=== PATIENT | female | born 1990 | race Caucasian/White ===

== ENCOUNTER 2018-09-18 16:27 | Emergency (ER) | payer OTHER ==
[2018-09-18 16:32] VITALS: BP 119/83; PULSE 97; RESP 18; TEMP 98.2; O2SAT 100
[2018-09-18] MEDS ORDERED: Acetaminophen 650mg/20.3ml solution UD PO STA (16:33)
[2018-09-18] MEDS ORDERED: Acetaminophen 650mg/20.3ml solution UD ONE (16:35)
--- NOTE | 2018-09-18 16:46 | C.PDOC ---
History Of Present Illness 27 y/o female presents to the ER complaining of right ankle pain s/p fall today. Patient states that she was walking down the stairs when she missed a step and she inverted her right ankle.Patient denies having head injury,LOC, headache,dizziness, CP,SOB, knee pain, weakness, and numbness. <Supa Sumner DO - Last Filed: 09/18/18 19:58> <Sandee Xavier - Last Filed: 09/18/18 16:37> History Per: Patient History/Exam Limitations: no limitations Onset/Duration Of Symptoms: Hrs Current Symptoms Are (Timing): Still Present Severity: Moderate <Burak PENASupa Last Filed: 09/18/18 19:58> Time Seen by Provider: 09/18/18 16:37 Chief Complaint (Nursing): Lower Extremity Problem/Injury Past Medical History Vital Signs: Last Vital Signs Temp 98.2 F 09/18/18 16:30 Pulse 97 H 09/18/18 16:30 Resp 18 09/18/18 16:30 BP 119/83 09/18/18 16:30 Pulse Ox 100 09/18/18 16:30 - Social History Hx Alcohol Use: No Hx Substance Use: No - Immunization History Hx Tetanus Toxoid Vaccination: Yes Hx Influenza Vaccination: Yes Hx Pneumococcal Vaccination: No <Sandee Xavier - Last Filed: 09/18/18 16:37> Reviewed: Historical Data, Nursing Documentation, Vital Signs Vital Signs: Last Vital Signs Temp 98.2 F 09/18/18 16:30 Pulse 97 H 09/18/18 16:30 Resp 18 09/18/18 16:30 BP 119/83 09/18/18 16:30 Pulse Ox 100 09/18/18 17:27 - Medical History PMH: No Chronic Diseases Surgical History: No Surg Hx Family History: States: No Known Family Hx <Burak PENASupa Last Filed: 09/18/18 19:58> Review Of Systems Except As Marked, All Systems Reviewed And Found Negative. Cardiovascular: Negative for: Chest Pain Respiratory: Negative for: Shortness of Breath Musculoskeletal: Positive for: Other (right ankle pain) Neurological: Negative for: Weakness, Numbness, Headache, Dizziness <Burak PENASupa - Last Filed: 09/18/18 19:58> Physical Exam - Physical Exam Appears: Non-toxic, No Acute Distress Skin: Normal Color, Warm, Dry Head: Atraumatic, Normacephalic Eye(s): bilateral: Normal Inspection Nose: Normal Oral Mucosa: Moist Neck: Supple Chest: Symmetrical Extremity: No Normal ROM (decreased ROM in right ankle), Tenderness (tenderness to lateral aspect of right ankle), Swelling (swelling to lateral aspect of right ankle) Pulses: Left Dorsalis Pedis: Normal, Right Dorsalis Pedis: Normal Neurological/Psych: Oriented x3, Normal Speech, Normal Motor, Normal Sensation <Supa Sumner DO - Last Filed: 09/18/18 19:58> ED Course And Treatment O2 Sat by Pulse Oximetry: 100 <DucRomelbrittany - Last Filed: 09/18/18 16:37> Pulse Ox Interpretation: Normal - Other Rad X-Ray-Ankle X-Ray: Viewed By Me, Read By Radiologist Interpretation: PROCEDURE: Right Ankle Radiographs. Three views. HISTORY: swelling/pain/bruising..s/p fall. COMPARISON: None available. FINDINGS: BONES: No acute displaced fracture. JOINTS: No dislocation. SOFT TISSUES: Extensive soft tissue swelling along the lateral lower extremity and ankle. No evidence of radiopaque foreign body. OTHER FINDINGS: None. IMPRESSION: Extensive soft tissue swelling along the lateral lower extremity and ankle. No acute displaced fracture identified. <Supa Sumner DO - Last Filed: 09/18/18 19:58> Medical Decision Making Medical Decision Making: Plan: --Tylenol PO --X-Ray-Right Ankle <Radhacatina PENASupa - Last Filed: 09/18/18 19:58> Disposition <DucRomelacostapreet - Last Filed: 09/18/18 16:37> <Radhacatina PENASupa - Last Filed: 09/18/18 19:58> - Disposition Referrals: Toan De Dios MD [Staff Provider] - Disposition: HOME/ ROUTINE Additional Instructions: NIKOLE DE DIOS, thank you for letting us take care of you today. Your provider was Supa Sumner DO and you were treated for RT ANKLE PAIN. The emergency medical care you received today was directed at your acute symptoms. If you were prescribed any medication, please fill it and take as directed. It may take several days for your symptoms to resolve. Return to the Emergency Department if your symptoms worsen, do not improve, or if you have any other problems. Please contact your doctor or call one of the physicians/clinics you have been referred to that are listed on the Patient Visit Information form that is included in your discharge packet. Bring any paperwork you were given at discharge with you along with any medications you are taking to your follow up visit. Our treatment cannot replace ongoing medical care by a primary care provider outside of the emergency department. Thank you for allowing the [facility] team to be part of your care today. Try to keep as much weight off of your ankle over the next few days. Follow up with your primary care doctor at the end of the week for re-evaluation and further management. Prescriptions: Ibuprofen [Motrin] 600 mg PO Q6 PRN #20 tab PRN Reason: Pain, Moderate (4-7) Instructions: Ankle Sprain (DC), How to Use Crutches Forms: [employer] (Iranian) - Scribe Statement The provider has reviewed the documentation as recorded by the Kimberliibsujey Calvo Provider Attestation: All medical record entries made by the Scribe were at my direction and personally dictated by me. I have reviewed the chart and agree that the record accurately reflects my personal performance of the history, physical exam, medical decision making, and the department course for this patient. I have also personally directed, reviewed, and agree with the discharge instructions and disposition. <Supa Sumner DO - Last Filed: 09/18/18 19:58>
--- NOTE | 2018-09-18 17:15 | RAD ---
PROCEDURE: Right Ankle Radiographs. Three views. HISTORY: swelling/pain/bruising..s/p fall COMPARISON: None available. FINDINGS: BONES: No acute displaced fracture. JOINTS: No dislocation. SOFT TISSUES: Extensive soft tissue swelling along the lateral lower extremity and ankle. No evidence of radiopaque foreign body. OTHER FINDINGS: None. IMPRESSION: Extensive soft tissue swelling along the lateral lower extremity and ankle. No acute displaced fracture identified.
--- NOTE | 2018-09-20 10:45 | C.PDOC ---
History Of Present Illness 27 y/o female presents to ED complaining of right ankle pain. Patient reports she was walking down a flight of stairs when she missed a step and inverted her right ankle. She denies any head injuries or loss of consciousness. Denies any symptoms prior to fall. Time Seen by Provider: 09/18/18 16:37 Chief Complaint (Nursing): Lower Extremity Problem/Injury History Per: Patient History/Exam Limitations: no limitations Onset/Duration Of Symptoms: Hrs Current Symptoms Are (Timing): Still Present Past Medical History Reviewed: Historical Data, Nursing Documentation, Vital Signs Vital Signs: Last Vital Signs Temp 98.2 F 09/18/18 16:30 Pulse 97 H 09/18/18 16:30 Resp 18 09/18/18 16:30 BP 119/83 09/18/18 16:30 Pulse Ox 100 09/18/18 16:30 Family History: States: No Known Family Hx - Social History Hx Alcohol Use: No Hx Substance Use: No - Immunization History Hx Tetanus Toxoid Vaccination: Yes Hx Influenza Vaccination: Yes Hx Pneumococcal Vaccination: No Review Of Systems Except As Marked, All Systems Reviewed And Found Negative. Musculoskeletal: Positive for: Other (Right Ankle Pain). Negative for: Neck Pain Neurological: Negative for: Other (LOC) Physical Exam - Physical Exam Appears: Non-toxic, No Acute Distress Skin: Warm, Dry Head: Atraumatic Eye(s): bilateral: Normal Inspection Oral Mucosa: Moist Neck: Supple Cardiovascular: Rhythm Regular, No Murmur Respiratory: Normal Breath Sounds Extremity: Tenderness (to lateral aspect of R ankle), Capillary Refill (less than 2 seconds), Swelling (of right ankle) Pulses: Left Dorsalis Pedis: Normal, Right Dorsalis Pedis: Normal Neurological/Psych: Oriented x3, Normal Speech, Normal Motor, Normal Sensation ED Course And Treatment O2 Sat by Pulse Oximetry: 100 (RA) Pulse Ox Interpretation: Normal - Other Rad R Ankle XR X-Ray: Read By Radiologist Interpretation: FINDINGS: BONES: No acute displaced fracture. JOINTS: No dislocation. SOFT TISSUES: Extensive soft tissue swelling along the lateral lower extremity and ankle. No evidence of radiopaque foreign body. OTHER FINDINGS: None. IMPRESSION: Extensive soft tissue swelling along the lateral lower extremity and ankle. No acute displaced fracture identified. Medical Decision Making Medical Decision Making: Plan: --Tylenol PO --Right Ankle XR Patient was given becky bandage and crutches. Disposition - Disposition Referrals: Toan Alcaraz MD [Staff Provider] - Disposition: HOME/ ROUTINE Disposition Time: 17:15 Condition: GOOD Additional Instructions: NIKOLE ALCARAZ, thank you for letting us take care of you today. Your provider was Supa Sumner DO and you were treated for RT ANKLE PAIN. The emergency medical care you received today was directed at your acute symptoms. If you were prescribed any medication, please fill it and take as directed. It may take several days for your symptoms to resolve. Return to the Emergency Department if your symptoms worsen, do not improve, or if you have any other problems. Please contact your doctor or call one of the physicians/clinics you have been referred to that are listed on the Patient Visit Information form that is included in your discharge packet. Bring any paperwork you were given at discharge with you along with any medications you are taking to your follow up visit. Our treatment cannot replace ongoing medical care by a primary care provider outside of the emergency department. Thank you for allowing the [facility] team to be part of your care today. Try to keep as much weight off of your ankle over the next few days. Follow up with your primary care doctor at the end of the week for re-evaluation and further management. Prescriptions: Ibuprofen [Motrin] 600 mg PO Q6 PRN #20 tab PRN Reason: Pain, Moderate (4-7) Instructions: Ankle Sprain (DC), How to Use Crutches Forms: [employer] (Iranian) - Clinical Impression Clinical Impression: Ankle sprain - Scribe Statement The provider has reviewed the documentation as recorded by the Amy Gil Provider Attestation: All medical record entries made by the Kimberliibsujey were at my direction and personally dictated by me. I have reviewed the chart and agree that the record accurately reflects my personal performance of the history, physical exam, medical decision making, and the department course for this patient. I have also personally directed, reviewed, and agree with the discharge instructions and disposition.
== END 2018-09-18 17:37 | disposition home or self-care (01) ==
LOC: C.ER 16:27
DX: S93.401A Sprain of unspecified ligament of right ankle, initial encounter (principal); X50.0XXA Overexertion from strenuous movement or load, initial encounter